=== PATIENT | female | born 1975 | race Asian ===

== ENCOUNTER 2025-03-11 06:47 | Day surgery (SDC) | payer OTHER ==
[2025-03-06 08:14] VITALS: BMI 22.5
[2025-03-11] MEDS ORDERED: PROPOFOL 40 ML ONE (09:01)
[2025-03-11] MEDS ORDERED: Lidocaine 1% PF 5 ML VIAL ONE (09:02)
== END 2025-03-11 11:08 | disposition home or self-care (01) ==
LOC: CSHSDC 06:47
PROVIDERS: ATTEND Surgery
PROC: 0DJD8ZZ Inspection of Lower Intestinal Tract, Via Natural or Artificial Opening Endoscopic (ICD-10-PCS; principal; 2025-03-11)
DX: Z12.11 Encounter for screening for malignant neoplasm of colon (principal); I10 Essential (primary) hypertension; Z79.899 Other long term (current) drug therapy; Z88.0 Allergy status to penicillin; Z91.014 Allergy to mammalian meats; Z91.013 Allergy to seafood
CPT/HCPCS: J2704

== ENCOUNTER 2025-05-20 08:14 | Outpatient (CLI) | payer OTHER | END 2025-05-20 08:15 | disposition home or self-care (01) | LOC: CSHMAMMO 08:14 | PROVIDERS: ATTEND Student in an Organized Health Care Education/Training Program | DX: Z12.31 Encounter for screening mammogram for malignant neoplasm of breast (principal) | CPT/HCPCS: 77063; 77067 ==